=== PATIENT | male | born 1995 | race Caucasian/White ===

== ENCOUNTER 2017-11-26 08:56 | Inpatient (IN) | payer OTHER ==
[~2017-11-26] VITALS: Ht 172.7 cm; Wt 61.2 kg
--- NOTE | 2017-11-27 00:40 | NUR ---
Pre-assessment Note Assessment done in the intake office. Px is A&Ox4 but appears drowsy. Px is disheveled, unkempt with dirty fingernails. Px is ambulatory with steady gait. Speech clear and audible. Px is anxious but cooperative with good eye contact. VS are as follows BP= 118/62, DE= 81, RR= 16, T= 96.4, O2sat= 97% on RA. No complaints of pain at the moment. Px is here for medically supervised withdrawal from opiate. Px denies any withdrawal-induced seizures. NKA. Px is homeless. No home medications. Admission process will proceed in the unit.
--- NOTE | 2017-11-27 01:15 | NUR ---
COWS deferred COWS deferred due to the px is intoxicated.
[2017-11-27 01:20] VITALS: BP 120/65
--- NOTE | 2017-11-27 01:20 | NUR ---
Admission Note Px is 22 y/o male px who is being admitted for medically supervised withdrawal from opiate. Px is intoxicated at this time and is not currently experiencing withdrawal. Px appears anxious and lethargic with good eye contact. Px is disheveled, unkempt, with dirty finger nails. He is homeless. Speech is clear and audible. He is A&Ox4. Patient states that withdrawals from Heroin usually gives him flu-like sx like malaise, weakness, no appetite to eat, body and joint pains, restlessness, anxiety and depression. Px denies any hx of withdrawal-induced seizures. Px states current substances use as follows: 1. Heroin- 2-3 G smoked or snort for 8 mos. Last use was 11 AM today, 11/26/2017. Px started to use Heroin last year 2016. His longest sober period was 14 days last year. 2. Crack Cocaine- 0.5 G smoked for 2 mos. Last use 2 days ago, 11/24/2017. Started using this year, 2017. Px stated I just want to be off from Heroin. I tried a lot of times to be sober but I cant. I was in and out a facility, but every time I will be D/C, I will start to use again. I was in tx maybe 3x already. I was in [facility] in [place], a sober living last 7 to 9 days ago. I was kicked out when they found out that I am using. I stayed there for 3 days. I always fail to be successfully sober because of the people around me. A lot of people around me are using drugs. What can I do? The only thing that motivates me to keep going are my two kids. Phillip is homeless and jobless. He is a high school graduate. Px stated that he is just using his [employer] insurance and his dad is supporting him with this tx. He wanted to finish a 30 day program after this detox. Px added I really dont know how will this admission be different from the past. Ill just go with the flow. VS are as follows BP= 120/65, HI= 78, RR= 17, T= 97.6, O2sat= 98% on RA. No complaints of pain as of the moment. Pulse is regular. Respirations are even and unlabored. Lung man are clear. Bowel sounds are active on all quadrants. Skin is intact with redness on right heel. Px follows regular diet at home. NKA. Px stands at 58 and weighs 135 lbs. on standing scale. Px smokes 1 pack of cigarettes daily. Px PMH includes low back injury when he was 15 y/o, anxiety, depression and bipolar d/o all diagnosed in 2017. He was prescribed medications but stopped taking them after few days. Phillip was educated about the plan of care including detox, group and individual therapy and D/C planning. Phillip was encouraged to be open and to be honest for a successful recovery.
[2017-11-27] MEDS ORDERED: DICYCLOMINE HCL 20 MG TABLET PO PRN (02:15)
[2017-11-27] MEDS ORDERED: MIRALAX 17 GM POWD.PACK PO PRN (02:15)
[2017-11-27] MEDS ORDERED: IBUPROFEN 600 MG TABLET PO PRN (02:15)
[2017-11-27] MEDS ORDERED: MAGNESIUM HYDROXIDE 30 ML LIQUID UDC PO PRN (02:15)
[2017-11-27] MEDS ORDERED: ONDANSETRON 4 MG/2 ML VIAL IM PRN (02:15)
[2017-11-27] MEDS ORDERED: LOPERAMIDE HCL 2 MG CAPSULE PO PRN ×2 (02:15)
[2017-11-27] MEDS ORDERED: diphenhydrAMINE 50 MG CAPSULE PO PRN (02:15)
[2017-11-27] MEDS ORDERED: LORAZEPAM 1 MG TABLET PO PRN (02:15)
[2017-11-27] MEDS ORDERED: MAG HYDROX/AL HYDROX/SIMETH 30 ML LIQUID UDC PO PRN (02:15)
[2017-11-27] MEDS ORDERED: ONDANSETRON ODT 4 MG TAB.RAPDIS SL PRN (02:15)
[2017-11-27] MEDS ORDERED: BUPRENORPHINE HCL 2 MG TAB.SUBL SL PRN (02:15)
[2017-11-27] MEDS ORDERED: METHOCARBAMOL 750 MG TABLET PO PRN (02:15)
[2017-11-27] MEDS ORDERED: HYDROXYZINE PAMOATE 25 MG CAPSULE PO PRN (02:15)
[2017-11-27] MEDS ORDERED: CLONIDINE HCL 0.1 MG TABLET PO PRN (02:15)
[2017-11-27 02:37] LABS: *AMPHETAMINE, URINE NEGATIVE (NEGATIVE); *BARBITURATE, URINE NEGATIVE (NEGATIVE); *CANNABINOID, URINE NEGATIVE (NEGATIVE); *COCCAINE, URINE POSITIVE (NEGATIVE); *OPIATE, URINE POSITIVE (NEGATIVE); *PHENCYCLIDINE SCREEN,URINE NEGATIVE (NEGATIVE)
[2017-11-27 04:00] VITALS: BP 113/62
--- NOTE | 2017-11-27 04:00 | NUR ---
COWS deferred COWS deferred due to the px is asleep/intoxicated. To assess if the px is awake or not intoxicated per doctor's order. We'll continue to monitor.
--- NOTE | 2017-11-27 07:10 | NUR ---
End of Shift Note During the shift at 0200, px smoked cigarette 1x then went to bed and refused blood draw. Px oral intake is 400 ml, voided 2x, without BM. Px slept for 5 hours total. At 0630, px is asleep on bed in fowlers position. Bed on lowest position, side rails up 2x and call light within reach. We'll continue to monitor. Px is endorsed to AM shift.
--- NOTE | 2017-11-27 07:41 | NUR ---
BEGINNING OF SHIFT Patient endorsement report received from clinical support tech nurse, all pertinent information discussed. Patient/t with admitting Dx: opiate withdrawal. Patient also with substance use of: cocaine. Patient admitted 11/27/2017. As per clinical support tech patient still intoxicated and currently with no s/sx of withdrawal. Will monitor closely. Will monitor s/sx of withdrawal closely. Patient non compliant with treatment plan, refused blood draw x2. Patient slept for 5 hours. Patient received in bed with eyes closed, respirations are even and unlabored, responsive to verbal stimuli. Will educate patient regarding plan of care for the day and medication regimen. Safety measures are in place. Call light with in reach, will continue to monitor closely.
[2017-11-27 08:08] VITALS: BP 108/69
[2017-11-27] MEDS: MULTIVITAMINS,THERAPEUTIC TABLET PO SCH (09:00)
--- NOTE | 2017-11-27 09:47 | NUR ---
COWS DEFERRED Unable to assess patient for COW score assessment. Patient currently in bed with eyes closed, respirations even and unlabored, patient is responsive to verbal stimuli, patient non cooperative on answering assessment questions. Noted somnolent. BP: 92/66 HR: 64 R: 16. Will continue to monitor. Unable to administer scheduled medication due to sleeping. Safety measures are in place. Call light with in reach.
[2017-11-27] MEDS ORDERED: 5 DAY TAPER BUPRENORPHINE -SERENITY PROTOCOL SL PRN (10:00)
[2017-11-27] MEDS: BUPRENORPHINE HCL 2 MG TAB.SUBL SL SCH ×4 (10:00→21:00)
[2017-11-27 11:49] LABS: BASOPHILS % (AUTO) 0.4 % (0.0-2.0); EOSINOPHILS # (AUTO) 0.3 K/uL (0.0-0.7); HEMOGLOBIN 13.9 g/dL (12.5-16.3); LYMPHOCYTES # (AUTO) 1.2 K/uL (20.0-40.0); LYMPHOCYTES % (AUTO) 22.3 % (20.5-51.5); MEAN CORPUSCULAR HEMOGLOBIN 29.8 uug (23.8-33.4); MEAN CORPUSCULAR HGB CONC 34 g/dL (32.5-36.3); MEAN CORPUSCULAR VOLUME 87.9 fL (73.0-96.2); MONOCYTES # (AUTO) 0.4 K/uL (2.0-10.0); MONOCYTES % (AUTO) 7.1 % (0.0-11.0); NEUTROPHILS # (AUTO) 3.5 K/uL (1.8-8.9); NEUTROPHILS % (AUTO) 65.2 % (38.5-71.5); PLATELET COUNT (AUTO) 212 K/uL (152-348); RED BLOOD CELL COUNT(AUTO) 4.66 MIL/uL (4.06-5.63); WHITE BLOOD COUNT (AUTO) 5.4 K/uL (3.6-10.2)
[2017-11-27 12:03] LABS: ETHANOL < 3 MG/DL (0-0)
[2017-11-27 12:05] LABS: ALANINE AMINOTRANSFERASE 26 U/L (16-63); ALKALINE PHOSPHATASE 56 U/L (50-136); AMYLASE 42 U/L (25-115); ASPARTATE AMINOTRANSFERASE 12 U/L (15-37); BILIRUBIN,TOTAL 0.4 mg/dL (0.2-1.0); CARBON DIOXIDE 29 mmol/L (21-32); CHLORIDE 106 mmol/L (98-107); GLUCOSE 96 mg/dL (74-106); LIPASE 171 U/L (73-393); POTASSIUM 5.5 mmol/L (3.5-5.1); TOTAL PROTEIN, SERUM 6.5 g/dL (6.4-8.2); UREA NITROGEN, BLOOD 13 mg/dL (7-18)
[2017-11-27 12:14] LABS: THYROID STIMULATING HORMONE 0.222 mIU/mL (0.358-3.740)
[2017-11-27 12:17] VITALS: BP 108/62
--- NOTE | 2017-11-27 13:45 | NUR ---
COW ASSESSMENT/REFUSAL OF SUBUTEX Patient in bed awake, alert and oriented x4, noted with flat affect and depressed/labile mood. patient exhibiting the following s/sx of withdrawal: flushed skin, difficulty sitting still, restless, enlarged pupils, runny nose, moist eyes, irritable, tremors that can be felt, agitation, chills, difficulty concentrating, emotional volatility, generalized discomfort, increased emotional amplitude, and malaise, Patient with COW score of: 10, patient is scheduled to begin 5 day Subutex taper, unable to administer first dose and refused second dose, medication was offered to patient and refused x3, verbalized " i dont want it" patient was educated regarding risk vs benefits of refusing detox medication. Educated regarding s/sx of withdrawal. Patient continued to refuse. MD notified. Will continue to monitor patient closely. Instructed patient to notify staff nurse, MD, or charge nurse if he continues to experience an increase in withdrawal. Encouraged patient to increase PO fluid intake as tolerated, Will continue to monitor.
[2017-11-27 17:01] VITALS: BP 112/66
--- NOTE | 2017-11-27 17:45 | NUR ---
COW ASSESSMENT/REFUSAL OF SUBUTEX Patient continues in bed awake, alert and oriented x4, noted isolative.has a flat affect and depressed/labile mood. patient exhibiting the following s/sx of withdrawal: flushed skin, piloerection of skin, difficulty sitting still, restless legs, enlarged pupils, runny nose, moist eyes, irritable, tremors that can be felt, agitation, chills, difficulty concentrating, emotional volatility, generalized discomfort, increased emotional amplitude, and malaise, Patient with COW score of: 13, Patient refused scheduled Subutex detox medication dose. Verbalized I am going to try not to take it, I dont want it Patient educated on importance of taking detox medications, but refused. Offered other PRN medications and declined. educated regarding risk vs benefits of refusing detox medication. Educated regarding s/sx of withdrawal. Instructed patient to notify staff nurse, MD, or charge nurse if he continues to experience an increase in withdrawal. Encouraged patient to increase PO fluid intake as tolerated, Will continue to monitor.
--- NOTE | 2017-11-27 19:04 | NUR ---
END OF SHIFT Patient in room throughout shift, noted isolative. Encouraged patient to socialize with others. Patient in bed appears disheveled, unkempt, odorous, unshaven, also has clothes thrown on floor and empty candy wrappers and water bottles. Patient with poor regards to hygiene. Encouraged patient to maintain personal area and to self groom, offered to change linens and refused. Inability to perform ADLs without prompting. Patient has poor eye contact, has a sad and preoccupied facial expression. Patient has a flat affect, easily agitated. Labile mood. Can be argumentative at times. Patient always approached in calm and friendly manner, encouraged patient to express feelings and provided with calming reassurance as needed. Patient is exhibiting s/sx of withdrawal symptoms such as: flushed skin, difficulty sitting still, restless, enlarged pupils, runny nose, moist eyes, irritable, tremors that can be felt, agitation, chills, difficulty concentrating, emotional volatility, generalized discomfort, piloerection of skin, increased emotional amplitude, and malaise, Patient with last COW score of: 13. Patient refused scheduled Subutex detox medication doses. Verbalized I am going to try not to take it, I dont want it Patient educated on importance of taking detox medications, but refused. educated regarding risk vs benefits of refusing detox medication. Educated regarding s/sx of withdrawal. MD aware. Offered PRN medications and declined. Patient encouraged to attend group therapies/sessions to learn new coping skills to prevent relapse, refused to attend. Denies any SI/HI. Patient was also encouraged to develop coping skills and utilization of non pharmacological interventions. Will continue to monitor closely. Safety measures are in place. Call light with in reach. Patient endorsed to shift coordinator nurse, all pertinent information was discussed.
--- NOTE | 2017-11-27 19:04 | NUR ---
START OF SHIFT NOTE: Endorsed patient is a 22 year old male presented for Opioid(heroin) and Cocaine withdrawal, continues ordered 5 day Subutex taper. Withdrawal symptoms will be closely monitoring. Upon endorsement, he is in the bed, alert and oriented x4. He is appears sad and worry with poor eye contact, irritating mood and flat affect. Patient reports NKA, Full Code, Regular Diet, is on Fall and Seizures Precautions. Patient denies History of Seizures. Patient denies SI/HI. The most recent COWS=13 at 1701: Patient presented with moderate withdrawal signs and symptoms of anxiety, agitation, depression, nervousness, tremors, nasal congestion, sweating, tears/moist eyes, generalized body aches body aches, yawning, fatigue, and restlessness, per day shift outgoing nurse report. VSWNL. Respirations are even and unlabored. Skin is intact, warm, and dry to touch. Patient refused attending groups activities. No PRN Medications administrated during day shift. Calm and safety environment with minimized noises was provided. All needs met. Safety measures in place by hospital policy: Call light within reach, bed in the lowest position locked, padded rails up x2. Endorsement received from day shift nurse. Will continue to monitor closely.
[2017-11-27 20:00] VITALS: BP 118/67
--- NOTE | 2017-11-27 20:00 | NUR ---
COWS ASSESSMENT Patient appears with anxious mood and flat affect. Emotional support and reassuring provided. Encouraged to expresses his feelings. Relaxation Techniques: deep breathing exercises, guided imagery, and visualization. COWS=14 at 2000: Patient presented with anxiety, agitation, depression, obv. irritability, nasal congestion, stomach cramps, constipation, very mild pins and needles sensations, dilated pupils, nervousness, tremors, sweating, yawning, restlessness, and fatigue, flushed face, nervousness, tremors, and sweating.
--- NOTE | 2017-11-27 20:38 | NUR ---
PRN BENADRYL 50 MG 1 CAP PO ADMINISTRATION Patient c/o insomnia and asked aid. Benadryl 50 mg PO administrated PRN with full glass of water as ordered. Patient tolerated well. All needs met. Safe and calm environment with minimized noises was provided. Safety measures on place. Call light within reach, bed in lowest position locked, padded rails up bilaterally. Will continue to monitor closely.
--- NOTE | 2017-11-27 21:00 | NUR ---
SUBUTEX 4 MG SL REFUSED. COWS=14. PATIENT REFUSED SUBUTEX ORDERED. RISKS AND BENIFITS EXPLAINED. AWARE.
--- NOTE | 2017-11-27 21:38 | NUR ---
RE-ASSESSMENT Patient is sleeping. RR: 14. Respirations even and unlabored. Benadryl 50 mg PO administrated PRN for insomnia at 2037 was effective. Safe and calm environment with minimized noises was provided. All needs met. Safety measures: Call light within reach, bed in lowest position locked, padded rails up bilaterally. Will continue to monitor closely.
[2017-11-28] VITALS: BP 106/76
--- NOTE | 2017-11-28 | NUR ---
COWS ASSESSMENT: COWS=12 at 0000: The patient c/o anxiety, agitation, irritability, restlessness, fatigue, nervousness, tremors, generalized body aches, and sweating. Safe and calm environment with minimized noises was provided. All needs met. Safety measures in place: Call light within reach, bed is locked in lowest position, and padded bed rails up x2.
[2017-11-28 04:00] VITALS: BP 114/73
--- NOTE | 2017-11-28 04:00 | NUR ---
COWS ASSESSMENT COWS=13 at 0400: Patient c/o "sleep difficulty, anxiety, and irritability". Patient presented with moderate withdrawal symptoms of anxiety, agitation, nervousness, irritability, flushed face, sweating, tremors, yawning, piloerection, restlessness, and fatigue. VSWNL. Respirations are even and unlabored.
--- NOTE | 2017-11-28 07:28 | NUR ---
END OF SHIFT NOTE Presented patient is a 29 old male admitted for Alcohol (Vodka) withdrawal, continues PRN Medications. The patient withdrawal symptoms closely monitored. Patient is alert and oriented x4, ambulatory with steady gait. His speech is soft and clear. The patient reports allergy to Corticosteroids (Glucocorticoids), Regular Diet, is on Fall and Seizures Precautions. Patient denies history of seizures. The patient appears anxious, worry with labile affect. Education provided to use of Relaxation Techniques: Deep breathing exercises, guided imagery, and visualization. Initial CIWA=11 at 2000, CIWA=16 at 0000. The most recent CIWA=12 at 0400. Patient presented with anxiety, agitation, depression, nervousness, irritability, tremors, sweating, generalized body aches, pins and needles sensations, fatigue, and restlessness. Skin remains intact, warm, and dry to touch. PRN Ativan 1mg PO administrated for CIWA=11 at 2100 was effective. PRN Clonidine 0.1 mg PO administrated for high BP was effective: BP decreased from 144/107 to 144/89, PRN Benadryl 50 mg PO administrated for insomnia at 2101, PRN Ativan 2 mg PO administrated for CIWA=16 at 2343, and were effective. Patient remains compliant with medications, treatment, and diet regimen. Patient slept for 4 hours, intake 1,100 ml, voided x1. All needs met. Safety measures in the place by hospital policy: Call light within reach, bed in the lowest position and locked, padded rails up x2. Patient endorsed to day shift nurse in stable condition, report given. Addendum: 11/28/17 at 0730 by GLORIA OROZCO RN wrong pt
--- NOTE | 2017-11-28 07:30 | NUR ---
END OF SHIFT NOTE: Presented patient is a 22 year old male admitted for Opioid(heroin) and Cocaine withdrawal. 5 Day Subutex Taper ordered. He is alert and oriented x4, with stable gate, and clear soft speech. The patient appears sad, worry with labile affect and anxious mood. Education provided to use of Relaxation Techniques: Deep breathing exercises, guided imagery, and visualization. Patient noted to be disheveled, unkempt and with uncombed hair. Initial COWS=14 at 2000. Patient refused scheduled Subutex at 2100. Risks and benefits explained. aware. COWS=13 at 0000. Patient refused any PRN Medications for opioid withdrawal at 0000. Risks and benefits explained. Patient said, "I do not want to taking any medications. Leave me alone". The most recent COWS=12 at 0400: Patient presented with anxiety, agitation, depression, irritability, nervousness, tremors, sweating, fatigue, restlessness, yawning. Respirations are even and unlabored. Skin is intact, warm and dry to touch. Benadryl 50 mg PO administrated PRN for insomnia at 2037 was effective. Patient remains compliant with treatment, medications, and diet regime. Calm and safety environment with minimized noises was provided. Patient slept 8 hours, intake 500 ml, voided x2. Call light within reach, bed is locked in lowest position, padded bed rails up bilaterally. Patient endorsed to day shift nurse.
--- NOTE | 2017-11-28 07:35 | NUR ---
BEGINNING OF SHIFT Patient endorsement report received from night supervisor nurse, all pertinent information was discussed. Patient continues under close observation, continues with ongoing Subutex taper, patient non compliant with detox medication administration, patient has refused scheduled Subutex detox medications, per night supervisor patient refused during 2100. patient did received PRN: Benadryl. Slept for 8 hours. Patient with COW score of: 12. Will continue to monitor s/sx of withdrawal closely. Patient received in bed with eyes closed, respirations are even and unlabored, responsive to verbal stimuli. Will educate patient regarding plan of care for the day and medication regimen. Safety measures are in place. Call light with in reach, will continue to monitor closely.
[2017-11-28 08:17] VITALS: BP 113/70
[2017-11-28] MEDS: MULTIVITAMINS,THERAPEUTIC TABLET PO SCH (08:44)
[2017-11-28] MEDS ORDERED: TUBERCULIN,PURIF.PROT.DERIV. 5 TU/0.1 ML TEST ID ONE (09:00)
[2017-11-28] MEDS: BUPRENORPHINE HCL 2 MG TAB.SUBL SL SCH ×3 (09:00→21:00)
--- NOTE | 2017-11-28 09:00 | NUR ---
COW ASSESSMENT/REFUSAL OF SUBUTEX Continues under close observation, was noted exhibiting the following s/sx of withdrawal: Elevated heart rate, flushed face, calmly skin, restless, fidgety, enlarged pupils, runny nose, tremors that can be felt, multiple yawns, increase irritability, anxiety, agitation, difficulty concentrating, emotional volatility, generalized discomfort, increased emotional amplitude, and malaise, Patient with COW score of: 14, Patient scheduled to receive detox medication, Subutex. Patient refused detox medication, verbalized " i just dont want to take it, I want to try doing without it" Patient was educated regarding risk vs benefits of refusing detox medication. Educated regarding s/sx of withdrawal. Patient continued to refuse. MD notified. Will continue to monitor patient closely. Instructed patient to notify staff nurse, MD, or charge nurse if he continues to experience an increase in withdrawal. Patient was also offered other PRN medications for symptoms and declined. Encouraged patient to increase PO fluid intake as tolerated, Will continue to monitor.
[2017-11-28 09:11] LABS: HEPATITIS B SURFACE AG Negative (Negative)
[2017-11-28 13:49] VITALS: BP 118/84
--- NOTE | 2017-11-28 15:00 | NUR ---
REFUSAL OF DETOX MEDICATION Patient scheduled to receive detox medication, Subutex. Patient refused detox medication, verbalized "nope, not gonna take it" Patient was educated regarding risk vs benefits of refusing detox medication. Educated regarding s/sx of withdrawal. Patient continued to refuse. MD notified. Will continue to monitor patient closely. Instructed patient to notify staff nurse, MD, or charge nurse if he continues to experience an increase in withdrawal. Encouraged patient to increase PO fluid intake as tolerated, Will continue to monitor.
[2017-11-28] MEDS: ACETAMINOPHEN 325 MG TABLET PO PRN ×2 (15:19→20:05)
--- NOTE | 2017-11-28 15:19 | NUR ---
PRN TYLENOL Patient reported headache 5/10, provided with non pharmacological interventions with no relief, administered Tylenol as ordered, will monitor effectiveness of mediation.
--- NOTE | 2017-11-28 16:19 | NUR ---
TYLENOL REASSESSMENT Patient reports medication effective no longer has a headache. pain level 0/10, will continue to monitor.
--- NOTE | 2017-11-28 17:00 | NUR ---
COW ASSESSMENT Patient noted exhibiting the following s/sx: Elevated heart rate, flushed face, calmly skin, restless, fidgety, enlarged pupils, runny nose, tremors that can be felt, multiple yawns, increase irritability, anxiety, agitation, difficulty concentrating, emotional volatility, generalized discomfort, increased emotional amplitude, and malaise, Patient with COW score of: 14, patient non compliant with medication administration, offered PRN medications and refused. Will continue to monitor. Safety measures in place.
[2017-11-28 17:40] VITALS: BP 148/86
--- NOTE | 2017-11-28 18:58 | NUR ---
START OF SHIFT NOTE: Upon endorsement, patient is his room, lying in the bed, and watching TV. He is alert and oriented x4, with stable gait, and soft and clear speech. Patient noted sad, worried, easy overwhelmed, with poor eye contact. Patient presented with anxious mood and irritable affect. Emotional support and reassuring provided. Patient encouraged to express his feelings. Patient noted disheveled, unshaven, unkempt with uncombed hair. Encouraged to independently perform hygiene care. Latest COWS=13 at 1740. Patient presented with anxiety, agitation, irritability, restlessness, fatigue, nervousness, tremors, sweating, nasal congestion, pins and needles sensations, and yawning. During day shift patient refused scheduled medications, per day shift nurse report. PRN Tylenol 650 mg PO administrated for headache at 1519 was effective. Patient remains compliant with treatment, medications, and diet regime per day shift nurse report. Encouraged to fluids intake as tolerated. Encouraged to attend group activities. The patient scheduled for discharging tomorrow at 0930. Safe and calm environment with minimized noises was provided. All needs met. Safety measures: Call light within reach, bed is locked in lowest position, and padded bed rails up bilaterally. Patient endorsed by outgoing day shift nurse. Will continue to monitor closely.
--- NOTE | 2017-11-28 18:58 | NUR ---
END OF SHIFT Patient continues under close observation, continues to be non compliant with medication administration. Refused all scheduled doses of Subutex during shift. Was noted exhibiting the following s/sx of withdrawal: Elevated heart rate, flushed face, calmly skin, restless, fidgety, enlarged pupils, runny nose, tremors that can be felt, multiple yawns, increase irritability, anxiety, agitation, difficulty concentrating, emotional volatility, generalized discomfort, increased emotional amplitude, and malaise, Patient with last COW score of: 13. Patient educated multiple times on importance of taking detox medications, but refused. educated regarding risk vs benefits of refusing detox medication. Educated regarding s/sx of withdrawal. MD aware. Offered PRN medications and declined. Patient noted less isolative during shift, noted socializing with peers, and attending group therapies/sessions. At times still noted:flat affect, easily agitated. Labile mood. Patient with poor regards to hygiene. Encouraged patient to maintain personal area and to self groom, offered to change linens and refused. Inability to perform ADLs without prompting. Patient has poor eye contact, has a sad and preoccupied facial expression. Denies any SI/HI. Patient was also encouraged to develop coping skills and utilization of non pharmacological interventions. Will continue to monitor closely. Safety measures are in place. Call light with in reach. Patient endorsed to lieutenant shift supervisor nurse, all pertinent information was discussed.
[2017-11-28 20:00] VITALS: BP 138/96
--- NOTE | 2017-11-28 20:00 | NUR ---
COWS ASSESSMENT Patient appears anxious, agitated, nervous, easy overwhelmed, worry, and sad. Patient noted with anxious affect, and irritable mood. COWS=11. Patient presented with withdrawal symptoms such as: His mood and affect are depressed and anxious. Patient presented with anxiety, agitation, depression, nervousness, tremors, nasal congestion, yawning, c/o moderate generalized body aches, stomach cramps, restlessness, sweating, and fatigue.
--- NOTE | 2017-11-28 20:05 | NUR ---
PRN TYLENOL 650 MG PO ADMINISTRATION PRN Tylenol 650 mg PO administrated for low back pain"10/06" at 2005. Patient tolerated well. All needs met. Safe and calm environment with minimized noises was provided. Safety measures on place. Call light within reach, bed in lowest position locked, padded rails up bilaterally. Will continue to monitor closely.
--- NOTE | 2017-11-28 21:00 | NUR ---
SUBUTEX 4 MG SL REFUSED. COWS=11. PATIENT REFUSED SUBUTEX ORDERED. RISKS AND BENIFITS EXPLAINED. AWARE.
--- NOTE | 2017-11-28 21:05 | NUR ---
PRN TYLENOL PO RE-ASSESSMENT Patient reports,"My low back pain 07/06 now, Tylenol help to me". PRN Tylenol 650 mg PO administrated for low back pain"10/06" at 2004 was effective. Safe and calm environment with minimized noises was provided. All needs met. Safety measures: Call light within reach, bed in lowest position locked, padded rails up bilaterally. Will continue to monitor closely.
[2017-11-28] MEDS ORDERED: TRAZODONE 50 MG TABLET PO ONE (22:45)
--- NOTE | 2017-11-28 22:57 | NUR ---
PRN TRAZODONE 50 MG PO ONCE ADMINISTRATION PRN Trazodone 50 mg PO administrated as ordered for insomnia as ordered x1. Patient tolerated well. Safe and calm environment with minimized noises was provided. All needs met. Safety measures in the place: Call light within reach, bed locked in the lowest position, padded rails up x2. Will continue to monitor closely.
--- NOTE | 2017-11-28 23:57 | NUR ---
PRN TRAZODONE PO RE-ASSESSMENT The patient is sleeping. RR: 15. Respirations are even and unlabored. PRN Trazodone 50 mg PO administrated at 2257 was effective. Safe and calm environment with minimized noises was provided. All needs met. Safety measures in the place: Call light within reach, bed locked in the lowest position, and padded rails up x2. Will continue to monitor closely.
[2017-11-29] VITALS: BP 131/80
--- NOTE | 2017-11-29 | NUR ---
COWS=12 at 0000. The patient c/o anxiety, agitation, nervousness, tremors, irritability, gooseflesh skin, sweating, yawning, restlessness, and fatigue. Patient appears worried with anxious mood. Emotional support provided. Encouraged to expresses his feelings. Safe and calm environment with minimized noises was provided. All needs met. Safety measures: Call light within reach, bed locked in lowest position, and padded bed rails up bilaterally. Will continue to monitor closely.
[2017-11-29 04:00] VITALS: BP 108/69
--- NOTE | 2017-11-29 04:00 | NUR ---
CIWA=11 at 0400: Patient presented with withdrawal symptom such as anxiety, agitation, nervousness, irritability, sweating, abdominal cramps, restlessness, tremors, fatigue, generalized body aches, flashing face, and yawning. Will continue to monitor closely.
--- NOTE | 2017-11-29 07:13 | NUR ---
END OF SHIFT NOTE: Patient is a 22 year old male presented for Alcohol and Opioid withdrawal, and scheduled for discharging today. Patient is alert and oriented x4, ambulatory with steady gate. The patient encouraged to express his feelings. Education provided to use of Relaxation Techniques: Deep breathing exercises, guided imagery, and visualization. Patient noted to be unshaven, unkempt, and with uncombed hair. Educated in safety and hygiene care. Encouraged to independently perform hygiene care. COWS=11 at 2000, COWS=12 at 0000. Latest COWS=11 at 0400. Patient presented with moderate withdrawal symptoms of anxiety, agitation, nervousness, irritability, flushed face, sweating, slight tremors, yawning, restlessness, and fatigue. Patient refused scheduled Subutex at 2100. Risks and benefits explained. MD aware.PRN Tylenol 650 mg PO administrated for low back pain"10/06" at 2004, PRN Trazodone 50 mg PO administrated for insomnia at 2257, and were effective. Encouraged to increase oral fluids as tolerated. Calm and safety environment with minimized noises was provided. Patient slept for 4 hours, intake 1,000 ml, voided x2, stool x1. All needs met. Safety measures in the place by hospital policy: Call light within reach, bed in the lowest position and locked, padded rails up x2. Patient endorsed to day shift nurse in stable condition, report given.
--- NOTE | 2017-11-29 07:51 | NUR ---
BEGINNING OF SHIFT Patient endorsement report received from looping machine operator nurse, all pertinent information was discussed. Patient is scheduled to be discharged this morning, Endorsement report received from looping machine operator nurse, all pertinent information was discussed. Patient received awake, alert and oriented x4, educated regarding medication regimen and plan of care for the day, will educate regarding all discharge instructions as well. Slept for 5 hours. Patient with COW score of: 10. Received PRN: Trazodone, and Tylenol. Safety measures are in place. Call light with in reach, will continue to monitor closely.
[2017-11-29 08:00] VITALS: BP 115/73
[2017-11-29 08:06] VITALS: BP 115/73
[2017-11-29] MEDS: MULTIVITAMINS,THERAPEUTIC TABLET PO SCH (08:23)
[2017-11-29] MEDS ORDERED: BUPRENORPHINE HCL 2 MG TAB.SUBL SL SCH ×2 (09:00→15:00)
--- NOTE | 2017-11-29 09:43 | NUR ---
DISCHARGED Patient discharged off the unit in stable condition, not in any apparent acute distress at 0943. Patients vital signs WNL. Patient with last cow score of: 8. Patient was provided with education and teaching regarding all discharge instructions with good verbal understanding. Patients discharge instructions were placed in patients personal duffel bag. Off the unit at 0943.
[2017-11-30] MEDS ORDERED: BUPRENORPHINE HCL 2 MG TAB.SUBL SL SCH (09:00)
[2017-12-01] MEDS ORDERED: BUPRENORPHINE HCL 2 MG TAB.SUBL SL SCH (09:00)
== END 2017-11-29 09:43 | disposition other institution (70) | DRG 895 ==
LOC: SRC 11-27 00:06
PROVIDERS: ADMIT Family Medicine Addiction Medicine; ATTEND Family Medicine Addiction Medicine
PROC: HZ2ZZZZ Detoxification Services for Substance Abuse Treatment (ICD-10-PCS; principal; 2017-11-27)
PROC: HZ41ZZZ Group Counseling for Substance Abuse Treatment, Behavioral (ICD-10-PCS; 2017-11-28)
DX: F11.23 Opioid dependence with withdrawal (principal); Z81.3 Family history of other psychoactive substance abuse and dependence; F17.210 Nicotine dependence, cigarettes, uncomplicated; F14.10 Cocaine abuse, uncomplicated; Z59.0 Homelessness; G47.00 Insomnia, unspecified
CPT/HCPCS: 36415; 70030-TC; 80307; 80353; 80361; 83690; 83735; 84443; 85025; 86592; 86705; 86803; 87340; 87806; A4663; G0480; Q0163

== ENCOUNTER 2018-03-14 13:59 | Inpatient (IN) | payer OTHER ==
[~2018-03-14] VITALS: Ht 175.3 cm; Wt 68.0 kg
[2018-03-14 20:00] VITALS: BP 150/84
[2018-03-14 20:15] VITALS: BP 150/84
--- NOTE | 2018-03-14 20:15 | NUR ---
PREADMISSION ASSESSMENT Patient is a 23 year old male seen at intake. Patient is awake, alert, and oriented x4, is verbally responsive, but is a poor historian. He appears disheveled, unshaven, has uncombed hair, and looks older than stated age. He is ambulatory, but with an unsteady gait due to an injury to both of his feet caused by unsuccessful IV injections of heroin. Patient is noted to be apathetic, lethargic, anxious, fidgety, tachycardic, and restless. Patient is currently intoxicated off of heroin and methamphetamines and he reports his last use of these two drugs was today 03/14/2018 at 1600 and both were of a gram each. He reports that his past medical history includes generalized anxiety disorder and depression for which he is not taking any prescription medications. Vital signs are as follows: 150/84 HR 96 RR 17 T 97.6 O2Sat 98% on RA. Will continue with plan of care upon arrival on unit.
--- NOTE | 2018-03-14 20:25 | NUR ---
ADMISSION NOTE Patient is a 23 year old male admitted on 03/14/2018 at 2025. Patient is awake, alert, and oriented x4 and is verbally responsive. He was admitted to [facility] for medically supervised detox from opiates. He reports that he has been injecting 1 gram of heroin IV every day for the past 2.5 weeks, has been drinking about 750 mL of vodka everyday for a week, but stopped 1.5 weeks ago, and has been smoking 1 gram of methamphetamine every day for the past 2.5 weeks. He is able to comprehend questions regarding past medical history and substance abuse history asked of him, but his memory, judgment, and insight are limited to poor due to intoxication, depression, and apathy. He is noted to be agitated, lethargic, anxious, fidgety, tachycardic, and restless. Patient has a past medical history of anxiety and depression. Initial COWS score is 4. He reports no known allergies, follows a regular diet, and is full code. When questioned on his typical withdrawal symptoms off of heroin, he states that he has never withdrawn off of heroin, but he has experienced withdrawal symptoms from Fentanyl. He states these include restless legs, insomnia, irritability, fatigue, and diaphoresis. He reports that he has not used Fentanyl for at least 100 days. He denies history of seizure, falls, withdrawal induced cardiac complications, withdrawal induced delirium, and overdoses. He states that he has had a history of blackouts where he does things that he does not remember after abusing substances. Substance Abuse History: 1) Heroin: Patient stated that he has been injecting about 1 gram of heroin IV daily for the past 2.5 weeks and started using when he was 21 years old (2 years ago). His last use was today 03/14/2018 at 1600. 2) ETOH: Patient states that he used to drink about 750 mL of vodka per day for 1 week however, the last time he drank at this rate was 1.5 weeks ago. He says he has not drank since that time. 3) Methamphetamine: Patient reports that he has been smoking about 1 gram of this substance every day for the past 2.5 weeks which is when he first started smoking meth. His last use was today 03/14/2018 at 1600. He also states that he has used methamphetamines, ETOH, crack cocaine, ecstasy, psilocybin mushrooms, Xanax, and LSD. When questioned as to why he is seeking treatment today, patient states "I had 90 days clean and it felt fucking fantastic. I put it all to waste when I relapsed 2 and a half weeks ago. I enjoyed being sober. I felt normal again and I want that again. When asked why he relapsed, he mentioned that he has had emotional difficulties and states Im lonely. I hate my life. Thats why I use. When asked about his motivations to stay clean this time and what will be different, he states I lost my job. My girlfriend is mad at me and if my dad finds out, hes going to disown me. When questioned why he started, he mentions peer pressure at an early age when a friend offered him marijuana at about 14 years old. Patient stated that he has been to multiple treatment centers with limited success. He has been to [facility] which was a residential treatment center from 11/29/2017 to 02/27/2018. He has been to [facility] from 11/26/2017 to 11/28/2017. Hes also been to treatment centers in [place] which include [facility] two times in 2018 for a 9 day stay and a 6 day stay and to [facility] from 04/21/2017 to 05/05/2017. His longest period of sobriety last 98 days lasting from when he was admitted at [facility] and then transferred to [facility]. He admits to relapsing immediately after being discharged from treatment from [facility]. He denies having a primary care physician and a psychiatrist or psychologist. He reports that he was diagnosed with anxiety and depression several weeks ago, but does not remember exactly when. He also stated that he was prescribed medications for these conditions, but cannot remember what they were and also cannot remember when the last time he took his meds. Patient arrived to the unit without any home meds. He reports that his mother has a history of substance abuse which included Klonopin and Ambien, but he is unsure of the extent of all of the substances she has used. He considers that his father may be a functioning alcoholic, but does not seek treatment. Patient was unable to clarify his thoughts on his father. The patient denies any history or current suicidal or homicidal ideations and also denies any history of a 5150 hold. Patient stands at 59 tall and weighs 150 lbs per standing scale. He has edema to bilateral lower extremities, his feet, with pain which he states was due to unsuccessful heroin injections. This causes him to walk with a limp. He ambulates on the unit with a wheelchair and with 1 person assistance with transfers. His skin is dry, warm, and intact. Capillary refill is <3 seconds. PERRLA is present bilaterally with pupils at 4mm. Breathing is even and unlabored. Lungs are clear to auscultation bilaterally. Abdomen is soft and nondistended and bowel sounds are present in all 4 quadrants. Initial vital signs are as follows: 150/84 HR 96 RR 17 T 97.6 O2Sat 98% on RA. Patient was provided instructions regarding unit policies and procedures. A urine sample was provided by the patient. Fall and seizure precautions initiated and maintained. Safety measures are in place, bed in a low and locked position, bilateral side rails are raised, and call light is within reach. Care plans initiated. Will continue to monitor.
[2018-03-14] MEDS ORDERED: MAGNESIUM HYDROXIDE 30 ML LIQUID UDC PO PRN (21:15)
[2018-03-14] MEDS ORDERED: CLONIDINE HCL 0.1 MG TABLET PO PRN (21:15)
[2018-03-14] MEDS ORDERED: BUPRENORPHINE HCL 2 MG TAB.SUBL SL PRN (21:15)
[2018-03-14] MEDS ORDERED: IBUPROFEN 600 MG TABLET PO PRN (21:15)
[2018-03-14] MEDS ORDERED: METHOCARBAMOL 750 MG TABLET PO PRN (21:15)
[2018-03-14] MEDS ORDERED: LORAZEPAM 1 MG TABLET PO PRN (21:15)
[2018-03-14] MEDS ORDERED: HYDROXYZINE PAMOATE 25 MG CAPSULE PO PRN (21:15)
[2018-03-14] MEDS ORDERED: ONDANSETRON 4 MG/2 ML VIAL IM PRN (21:15)
[2018-03-14] MEDS ORDERED: ACETAMINOPHEN 325 MG TABLET PO PRN (21:15)
[2018-03-14] MEDS ORDERED: DICYCLOMINE HCL 20 MG TABLET PO PRN (21:15)
[2018-03-14] MEDS ORDERED: diphenhydrAMINE 50 MG CAPSULE PO PRN (21:15)
[2018-03-14] MEDS ORDERED: LOPERAMIDE HCL 2 MG CAPSULE PO PRN ×2 (21:15)
[2018-03-14] MEDS ORDERED: MAG HYDROX/AL HYDROX/SIMETH 30 ML LIQUID UDC PO PRN (21:15)
[2018-03-14] MEDS ORDERED: ONDANSETRON ODT 4 MG TAB.RAPDIS SL PRN (21:15)
[2018-03-14 22:28] LABS: *AMPHETAMINE, URINE POSITIVE (NEGATIVE); *BARBITURATE, URINE NEGATIVE (NEGATIVE); *CANNABINOID, URINE NEGATIVE (NEGATIVE); *COCCAINE, URINE NEGATIVE (NEGATIVE); *OPIATE, URINE POSITIVE (NEGATIVE); *PHENCYCLIDINE SCREEN,URINE NEGATIVE (NEGATIVE)
[2018-03-14] MEDS ORDERED: QUETIAPINE FUMARATE 200 MG TABLET PO ONE (23:30)
[2018-03-15] VITALS: BP 130/61
--- NOTE | 2018-03-15 | NUR ---
COWS DEFERRED Patient is noted to be lying in bed with eyes closed and even, unlabored respirations. Bed in a low and locked position with bilateral side rails raised. No signs of distress or pain noted. COWS assessment deferred. Will continue to monitor.
--- NOTE | 2018-03-15 04:00 | NUR ---
COWS DEFERRED Patient is noted to be lying in bed with eyes closed and even, unlabored respirations. Bed is in a low, locked position with bilateral side rails raised. Call light within reach. COWS assessment deferred. Will continue to monitor.
[2018-03-15 04:15] VITALS: BP 125/69
--- NOTE | 2018-03-15 07:15 | NUR ---
Start of Shift Note Pt. is a 23 y/o male admitted for the medically managed withdrawal from opiates. Pt. was also using methamphetamines and ETOH concurrently with his opiate use, but reports not having a drink for about 1.5 weeks. Endorse from previous shift pt. was admitted mildly intoxicated, and slept for the majority of the shift. Received pt. in room with. Pt. in bed with eyes closed. Pt. bed is cluttered with linens that are falling off the sides. No signs of SOB noted. Safety measures in place. Will continue to monitor pt.s behavior for safety.
[2018-03-15 08:00] VITALS: BP 122/64
--- NOTE | 2018-03-15 08:00 | NUR ---
COWS Deferred Pt. in bed with eyes. Arousable to touch. When woken up pt. puts linen over head and refuses to respond. Will continue to monitor pt.'s behavior for safety.
[2018-03-15] MEDS: BUPRENORPHINE HCL 2 MG TAB.SUBL SL SCH ×4 (09:00→20:59)
[2018-03-15] MEDS ORDERED: TUBERCULIN,PURIF.PROT.DERIV. 5 TU/0.1 ML TEST ID ONE (09:00)
[2018-03-15] MEDS: MULTIVITAMINS,THERAPEUTIC TABLET PO SCH (09:00)
[2018-03-15 12:00] VITALS: BP 118/58
--- NOTE | 2018-03-15 12:00 | NUR ---
COWS Assessment COWS of 3. Pt. in room laying in bed watching television. Pt. irritable upon approach but denies any withdrawal symptoms. Pt. states " I don't need or want subutex. I feel fine, can you please fucking leave me alone." Educated pt. on treatment plan. Will continue to monitor pt.'s behavior for safety.
[2018-03-15 14:24] LABS: BASOPHILS # (AUTO) 0.1 K/uL (0.0-8.0); BASOPHILS % (AUTO) 0.5 % (0.0-2.0); EOSINOPHILS # (AUTO) 0.1 K/uL (0.0-0.7); HEMATOCRIT 44.9 % (36.7-47.1); HEMOGLOBIN 15.4 g/dL (12.5-16.3); LYMPHOCYTES # (AUTO) 1.1 K/uL (20.0-40.0); LYMPHOCYTES % (AUTO) 8.7 % (20.5-51.5); MEAN CORPUSCULAR HGB CONC 34 g/dL (32.5-36.3); MEAN CORPUSCULAR VOLUME 87.5 fL (73.0-96.2); MONOCYTES # (AUTO) 0.7 K/uL (2.0-10.0); MONOCYTES % (AUTO) 5.6 % (0.0-11.0); NEUTROPHILS # (AUTO) 11.1 K/uL (1.8-8.9); NEUTROPHILS % (AUTO) 84.2 % (38.5-71.5); PLATELET COUNT (AUTO) 318 K/uL (152-348); RED BLOOD CELL COUNT(AUTO) 5.14 MIL/uL (4.06-5.63); WHITE BLOOD COUNT (AUTO) 13.2 K/uL (3.6-10.2)
[2018-03-15 14:37] LABS: ALANINE AMINOTRANSFERASE 32 U/L (16-63); ALKALINE PHOSPHATASE 72 U/L (50-136); ASPARTATE AMINOTRANSFERASE 22 U/L (15-37); BILIRUBIN,TOTAL 0.7 mg/dL (0.2-1.0); CARBON DIOXIDE 28 mmol/L (21-32); CHLORIDE 99 mmol/L (98-107); CREATININE 0.9 mg/dL (0.6-1.3); GLUCOSE 125 mg/dL (74-106); TOTAL PROTEIN, SERUM 8.1 g/dL (6.4-8.2); UREA NITROGEN, BLOOD 13 mg/dL (7-18)
[2018-03-15 14:41] LABS: THYROID STIMULATING HORMONE 0.139 mIU/mL (0.358-3.740)
[2018-03-15 14:58] LABS: ETHANOL < 3 MG/DL (0-0)
[2018-03-15 16:00] VITALS: BP 108/69
[2018-03-15] MEDS ORDERED: 5 DAY TAPER BUPRENORPHINE -SERENITY PROTOCOL SL PRN (16:00)
--- NOTE | 2018-03-15 16:00 | NUR ---
COWS Deferred Pt. in bed with eyes closed. Pt. arousable to name and touch but refuses to reply to questions. Pt. continue to refuse Subutex. aware. Will continue to monitor pt.'s behavior for safety.
--- NOTE | 2018-03-15 19:10 | NUR ---
End of Shift Note Pt. is a 23 y/o male admitted for the medically managed withdrawal from opiates. Pt. was also using methamphetamines and ETOH concurrently with his opiate use, but reports not having a drink for about 1.5 weeks. Pt. remained non compliant with medication regiment throughout shift and denies any symptoms withdrawal but is irritable upon approach. MD aware of pt.s noncompliance. Safety measures in place. Will endorse pt.s care to oncoming shift.
--- NOTE | 2018-03-15 19:15 | NUR ---
Start of Shift Received 23 year old male patient admitted 03/14/18 to [facility] for medically supervised withdrawal from Opiates. Pt is currently refusing his Subutex taper. Pt did not receive any PRN medications on day shift. Last COWS 3 @1200. Pt in room, isolative and withdrawn. He is guarded, anxious, agitated, and defensive. Bed is low, padded side rails up x 2, and call jones in reach. Continue to monitor.
[2018-03-15 20:00] VITALS: BP 123/81
--- NOTE | 2018-03-15 20:00 | NUR ---
COWS 5 Pt in room, isolative and withdrawn. He is guarded, anxious, agitated, and defensive.
[2018-03-15] MEDS: QUETIAPINE FUMARATE 200 MG TABLET PO SCH (20:57)
--- NOTE | 2018-03-15 21:00 | NUR ---
MED REFUSAL Pt refused Subutex. Denies withdrawal symptoms. COWS 5.
--- NOTE | 2018-03-16 | NUR ---
COWS deferred/ Vitals refused Pt resting with eyes closed. Respirations are even and unlabored. COWS deferred and pt refused vitals. Continue to monitor.
--- NOTE | 2018-03-16 04:00 | NUR ---
COWS deferred/ Vitals refused Pt resting with eyes closed. Respirations are even and unlabored. COWS deferred and pt refused vitals. Continue to monitor.
--- NOTE | 2018-03-16 06:40 | NUR ---
End of Shift Endorsing 23 year old male patient admitted 03/14/18 to [facility] for medically supervised withdrawal from Opiates. Pt is currently refusing his Subutex taper. Pt did not receive any PRN medications on shift mechanic. Last COWS 5 @1999. Pt is in bed resting with eyes closed. Respirations are even and unlabored. Bed is low, padded side rails up x 2, and call jones in reach. PO intake 1000 ml, voided x 2, BM x 0, and slept 9 hours.
--- NOTE | 2018-03-16 07:50 | NUR ---
START OF SHIFT NOTE Received report from night nurse, 23 year old male admitted for Heroin withdrawal and patient continues with his 5 days Subutex taper. Per endorsement patient did not receive any PRN slept for 9 hours, last COWS-5 and patient continues to refusing his Subutex. Received patient alert awake oriented x4. Breathing normal no SOB noted. Skin intact warm and dry to touch. Educated patient regarding plan of the day and medication regimen. All safety measures in place, call light within reach. Will cont with plan of care.
[2018-03-16 08:00] VITALS: BP 142/64
[2018-03-16] MEDS: MULTIVITAMINS,THERAPEUTIC TABLET PO SCH (09:00)
[2018-03-16] MEDS ORDERED: BUPRENORPHINE HCL 2 MG TAB.SUBL SL SCH (09:00)
--- NOTE | 2018-03-16 09:04 | NUR ---
COWS ASSESSMENT COWS score noted-5, patient presented with avoidant eye contact and verbalized feeling little anxious, fatigue, chills. Patient refused to take his schedule Subutex taper stated " I don't need any medication i am feeling fine." Offered x3 risk and benefits explained, MD notified. Will cont to monitor.
[2018-03-16 12:00] VITALS: BP 122/76
--- NOTE | 2018-03-16 12:00 | NUR ---
COWS ASSESSMENT COWS-12, Patient presented with disheveled appearance, anxious, increased pulse rate, fatigue. Will cont to monitor.
[2018-03-16] MEDS ORDERED: QUET200T PO (13:09)
--- NOTE | 2018-03-16 13:58 | NUR ---
Therapist prompted client to attend all group therapy sessions.
[2018-03-16 16:00] VITALS: BP 138/81
--- NOTE | 2018-03-16 18:57 | NUR ---
END OF SHIFT NOTE Endorsed to night nurse 23 year old male admitted for Heroin withdrawal. Patient continues to refused his Subutex taper and did not shows any s/s of withdrawal with evidence of low COWS score 5,6,5. Patient verbalized " I am doing fine i don't need anything i just feeling tired." MD notified and d/c Subutex and scheduled for d/c in AM. Patient resting in his bed watching TV did not interact with peers. Appetite good. Encourage PO fluids as tolerated. Patient denies any SI/HI. All needs attended and met. Last COWS score was 5 at 1600. During shift MRSA of nares results came out positive. MD notified. Isolation precautions started as ordered and per protocol. All safety measures in place. Endorse patient to night nurse in stable condition.
--- NOTE | 2018-03-16 19:30 | NUR ---
Start of Shift Received 23 year old male patient admitted 03/14/18 to [facility] for medically supervised withdrawal from Opiates. Subutex taper was discontined today 03/16/18, as pt refused. Pt did not receive any PRN medications on day shift. Last COWS 5 @1600. Pt is in bed isolating and withdrawn. Pt is anxious, agitated, and guarded. Bed is low, padded side rails up x 2, and call jones in reach. Pt is on contact isolation for positive MRSA in nares.
[2018-03-16 20:00] VITALS: BP 136/78
--- NOTE | 2018-03-16 20:00 | NUR ---
COWS 5 Pt is in bed isolating and withdrawn. Pt is anxious, agitated, and guarded. Continue to monitor.
[2018-03-16] MEDS: QUETIAPINE FUMARATE 200 MG TABLET PO SCH (21:03)
--- NOTE | 2018-03-17 | NUR ---
COWS deferred/ Vitals refused Pt resting with eyes closed. Respirations are even and unlabored. COWS deferred and pt refused vitals. Continue to monitor.
--- NOTE | 2018-03-17 04:00 | NUR ---
COWS deferred/ Vitals refused Pt resting with eyes closed. Respirations are even and unlabored. COWS deferred and pt refused vitals. Continue to monitor.
--- NOTE | 2018-03-17 06:34 | NUR ---
End of Shift Endorsing 23 year old male patient admitted 03/14/18 to [facility] for medically supervised withdrawal from Opiates. Pt did not receive any PRN medications on culinary instructor. Last COWS 5 @1999. Pt is in bed resting with eyes closed. Respirations are even and unlabored. Bed is low, padded side rails up x 2, and call jones in reach. Pt is on contact isolation for positive MRSA in nares. PO intake 1210 ml, voided x 3, BM x 0, and slept 8 hours.
--- NOTE | 2018-03-17 07:30 | NUR ---
start of shift note: received pt from low raw sugar cutter nurse, pt is in stable condition at this time, pt is admitted to [facility] for opiate withdrawal/dependence and is set to discharge today to able to change. pt's last documented cows is 5, will assist pt in discharging and will continue to monitor pt for any changes
[2018-03-17] MEDS: MULTIVITAMINS,THERAPEUTIC TABLET PO SCH (08:28)
[2018-03-17] MEDS ORDERED: BUPRENORPHINE HCL 2 MG TAB.SUBL SL SCH ×2 (09:00→15:00)
--- NOTE | 2018-03-17 09:46 | NUR ---
Discharge note: Pt was noted with soraya, swollen, painful and hard to touch area on his left AC, offered for pt to wait and have his arm examined offered pain medication pt refused, explained the risk and benefits of delaying discharge and pt verbalized he "I just want to leave and that I'll have the doctor at the treatment center look at it. pt without acute withdrawal symptoms at this time. all discharge teaching was administered and Pt verbalized understanding, all personal belongings were returned and pt will be transferred to [place] via private car
[2018-03-17 15:07] LABS: HEPATITIS B SURFACE AG Negative (Negative)
[2018-03-18] MEDS ORDERED: BUPRENORPHINE HCL 2 MG TAB.SUBL SL SCH (09:00)
[2018-03-19] MEDS ORDERED: BUPRENORPHINE HCL 2 MG TAB.SUBL SL SCH (09:00)
== END 2018-03-17 09:46 | disposition other institution (70) | DRG 897 ==
LOC: SRC 18:31
PROVIDERS: ADMIT Family Medicine Addiction Medicine; ATTEND Family Medicine Addiction Medicine
PROC: HZ2ZZZZ Detoxification Services for Substance Abuse Treatment (ICD-10-PCS; principal; 2018-03-14)
DX: F10.230 Alcohol dependence with withdrawal, uncomplicated (principal); F11.23 Opioid dependence with withdrawal; Y90.9 Presence of alcohol in blood, level not specified; F41.1 Generalized anxiety disorder; F17.210 Nicotine dependence, cigarettes, uncomplicated; F32.9 Major depressive disorder, single episode, unspecified; Z81.3 Family history of other psychoactive substance abuse and dependence; Z59.0 Homelessness; F15.10 Other stimulant abuse, uncomplicated
CPT/HCPCS: 36415; 80307; 80324; 80346; 80361; 83735; 84443; 85025; 86592; 86705; 86803; 87340; 87806; G0480